=== PATIENT | male | born 2005 | race Two or more races ===

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

== ENCOUNTER 2025-02-17 06:07 | Emergency (ER) | payer MEDICAID, SELFPAY ==
[2025-02-17 06:41] VITALS: BP 152/78; PULSE 108; RESP 20; TEMP 36.8; O2SAT 97; BMI 26.0
[2025-02-17 07:15] LABS: Appearance Urine Cloudy (Clear); Bilirubin Urine 1+ (Negative); Blood Urine 3+ (Negative); Color Urine Red (Yellow); Glucose Urine Negative (Negative); Ketones Urine Trace (Negative); Leukocyte Esterase Urine 3+ (Negative); Nitrite Urine Positive (Negative); Protein Urine 3+ (Negative); Specific Gravity Urine 1.025 (1.000-1.030)
[2025-02-17 07:34] LABS: Bacteria Urine Moderate; RBC Urine >100 (0-2); Squamous Epithelial Cell Urine Few (None-Few); WBC Clumps Urine Few
--- NOTE | 2025-02-17 08:23 | ED.GENADULT ---
HPI - General Adult General Chief complaint: Urogenital Problems, Male Stated complaint: blood when urinating Time Seen by Provider: 02/17/25 08:15 Source: patient Mode of arrival: ambulatory Limitations: no limitations History of Present Illness HPI narrative: 19-year-old male presenting today with dysuria for 3 days. In the last 24 hours he has developed increased urinary frequency. In the last 3 hours he developed blood clots in his urine. He denies suprapubic pain. He denies sexual activity. He denies inserting anything into the penis. He states that he felt achy yesterday and checked his temperature it was 100.7. He denies nausea or vomiting. He denies weakness or lethargy. He denies history of UTIs. He denies penile or scrotal pain. Related Data Previous Rx's ?Medication ?Instructions ?Recorded doxycycline hyclate 100 mg capsule 100 mg PO BID 7 days #14 caps 02/17/25 Allergies Allergy/AdvReac Type Severity Reaction Status Date / Time No Known Drug Allergies Allergy Verified 10/10/23 15:12 Review of Systems Status of ROS: Reports: 10 or more systems reviewed and unremarkable except as noted in History and below [facility] Social History Smoking Status: Never smoker How often do you have a drink containing alcohol: never AUDIT-C Alcohol total score: 0 Non-prescribed substance use: denies use Exam Narrative: Exam Narrative: Well-nourished well-developed patient in no acute distress. Alert and oriented. Answers questions appropriately. Mood and affect are appropriate. Thoughts are goal oriented and rational. No tangential or magical thinking noted. Patient speaks in full sentences without needing to catch his breath. HEENT: Normocephalic atraumatic. Pupils are equally round reactive to light. Extraocular muscles are intact. Conjunctivae are moist without any icterus noted. Moist mucous membranes. Abdomen: Soft and nontender nondistended with normal bowel sounds. No guarding or rebound. No masses or organomegaly appreciated. Extremities: Bilateral lower extremities are without edema. Skin: Well perfused without any obvious rashes. : Defers Const: Vital Signs, click to edit/add: Vital Signs - 24 hr 02/17/25 06:41 02/17/25 09:09 Temperature 98.3 F 99.3 F Pulse Rate [Right Pulse Oximeter] 108 H 100 Respiratory Rate 20 18 Blood Pressure [Ri t Upper Arm] 152/78 H 136/83 Pulse Oximetry 97 100 Oxygen Delivery Me thod Room Air Room Air Course Course ED Course: UA is grossly positive for signs of infection with 3+ blood, 3+ leukocyte esterase, positive nitrites. Chlamydia gonorrhea testing pending. CBC shows elevated white cell count. Chemistries unremarkable. Patient was given IM Rocephin while he was here. Blood cultures were drawn. Vital Signs Vital signs: Initial Vital Signs Temperature 98.3 F 02/17/25 06:41 Temperature Source Temporal Artery Scan 02/17/25 06:41 Pulse Rate 108 H 02/17/25 06:41 Pulse Rhythm Regular 02/17/25 06:41 Respiratory Rate 20 02/17/25 06:41 Blood Pressure 152/78 H 02/17/25 06:41 Blood Pressure Mean 102 02/17/25 06:41 Blood Pressure Position Sitting 02/17/25 06:41 Pulse Oximetry 97 02/17/25 06:41 Oxygen Delivery Method Room Air 02/17/25 06:41 Vital Signs Temperature 98.3 F 02/17/25 06:41 Pulse Rate 108 H 02/17/25 06:41 Respiratory Rate 20 02/17/25 06:41 Blood Pressure 152/78 H 02/17/25 06:41 Pulse Oximetry 97 02/17/25 06:41 Oxygen Delivery Method Room Air 02/17/25 06:41 Temperature 99.3 F 02/17/25 09:09 Pulse Rate 100 02/17/25 09:09 Respiratory Rate 18 02/17/25 09:09 Blood Pressure 136/83 02/17/25 09:09 Pulse Oximetry 100 02/17/25 09:09 Oxygen Delivery Method Room Air 02/17/25 09:09 Medications Administered Medications: Generic Name Dose Route Start Last Admin Trade Name Freq PRN Reason Stop Dose Admin Lidocaine HCl 2.1 ml 02/17/25 08:21 02/17/25 08:45 Lidocaine 1% 5 Ml (Pf) 5 Ml Vial IM 2.1 ml DIRECTED PRN Administration Pain Discontinued Medications Generic Name Dose Route Start Last Admin Trade Name Freq PRN Reason Stop Dose Admin Ceftriaxone Sodium 1 gm 02/17/25 08:21 02/17/25 08:45 Ceftriaxone 1 Gm Vial IM 02/17/25 08:22 1 gm ONCE ONE Administration Ibuprofen 600 mg 02/17/25 09:10 02/17/25 09:16 Ibuprofen 400 Mg Tablet PO 02/17/25 09:11 600 mg ONCE ONE Administration Medical Decision Making MDM Narrative Medical decision making narrative: 19-year-old male with urinary tract infection, leukocytosis. Patient will be discharged home on doxycycline. Recommend follow-up in 24-48 hours. Lab Data Lab results reviewed: Yes I reviewed the patient's lab results Labs: Lab Results 02/17/25 02/17/25 Range/Units 07:06 08:34 WBC 15.48 H (4.50-11.00) K/uL RBC 5.48 (4.30-5.90) m/uL Hgb 13.3 L (13.5-17.5) gm/dL Hct 41.6 (37.0-53.0) % MCV 76 L (80-100) fL MCH 24 L (26-34) pg MCHC 32 (32-36) gm/dL RDW Coeff of Leonora 14.3 (11.5-15.5) % Plt Count 181 (140-440) K/uL Neut % (Auto) 74.2 H (42.0-72.0) % Lymph % (Auto) 9.6 L (20-44) % Robertson % (Auto) 15.8 H (0.0-11.0) % Eos % (Auto) 0.1 (0.0-7.0) % Baso % (Auto) 0.1 (0.0-3.0) % Neut # (Auto) 11.50 H (1.7-7.0) K/uL Lymph # (Auto) 1.50 (0.90-2.90) K/uL Robertson # (Auto) 2.40 H (0.00-0.90) K/UL Eos # (Auto) 0.00 (0.00-0.50) K/uL Baso # (Auto) 0.00 (0.00-0.30) K/uL Abs Immat Gran (auto) 0.00 (0.00-0.30) K/uL Imm/Tot Granulo (auto) 0.2 % Sodium 138 (135-149) mmol/L Potassium 4.4 (3.6-5.1) mmol/L Chloride 102 (96-114) mmol/L Carbon Dioxide 25 (20-32) mmol/L Anion Gap 11 (7-15) mEq/L BUN 15 (5-24) mg/dL Creatinine 0.9 (0.5-1.5) mg/dL Estimated Creat Clear 101.11 Estimated GFR 125 ml/min Glucose 95 (60-115) mg/dL Calcium 9.5 (8.4-10.6) mg/dL Urine Color Red A (Yellow) Urine Appearance Cloudy A (Clear) Urine pH 7.0 (5.0-8.5) Ur Specific [facility] 1.025 (1.000-1.030) Urine Protein 3+ A (Negative) Urine Glucose (UA) Negative (Negative) Urine Ketones Trace A (Negative) Urine Blood 3+ A (Negative) Urine Nitrite Positive A (Negative) Urine Bilirubin 1+ A (Negative) Urine Urobilinogen 1.0 (0.2-1.0) Ur Leukocyte Esterase 3+ A (Negative) Urine RBC >100 A (0-2) Urine WBC 10-25 A (0-5) Urine WBC Clumps Few A (None) Ur Squamous Epith Cells Few (None-Few) Urine Bacteria Moderate A (None) Discharge Plan Discharge Clinical Impression: Urinary tract infection Patient Disposition: Home, Self-Care Condition: Stable Instructions: Urinary Tract Infection in Men (DC) Additional Instructions: Take all antibiotics as prescribed. Take your 1st dose today. You should follow-up with your primary care provider or at the [facility] in 24-48 hours for a recheck. If you start vomiting and cannot keep down your antibiotic, developed weakness or abdominal pain, you should return to the emergency department. Prescriptions: New doxycycline hyclate 100 mg capsule 100 mg PO BID 7 Days Qty: 14 0RF Follow Up/Referrals: Provider,Not a Local [Primary Care Provider] - Stand Alone Forms: [employer] Info Instructions
[2025-02-17] MEDS: cefTRIAXone 1 GM VIAL IM (08:45)
[2025-02-17] MEDS: LIDOCAINE 1% 5 ml (pf) 5 ML VIAL 2.1 ML IM (08:45)
[2025-02-17 09:01] LABS: Basophils Percent Auto 0.1 % (0.0-3.0); Eosinophils Percent Auto 0.1 % (0.0-7.0); Hematocrit 41.6 % (37.0-53.0); Hemoglobin* 13.3 gm/dL (13.5-17.5); Immature Granulocytes Pct Auto 0.2 %; Lymphocytes Percent Auto 9.6 % (20-44); Mean Corpuscular HGB Conc 32 gm/dL (32-36); Mean Corpuscular Hemoglobin 24 pg (26-34); Mean Corpuscular Volume 76 fL (80-100); Monocytes Percent Auto 15.8 % (0.0-11.0); Neutrophils Percent Auto 74.2 % (42.0-72.0); Platelet Count* 181 K/uL (140-440); RDW Coefficient of Variation % 14.3 % (11.5-15.5); Red Blood Count 5.48 m/uL (4.30-5.90); White Blood Count* 15.48 K/uL (4.50-11.00)
[2025-02-17 09:04] LABS: Slide Review Reflex No
[2025-02-17 09:09] VITALS: BP 136/83; PULSE 100; RESP 18; TEMP 37.4; O2SAT 100
[2025-02-17] MEDS: IBUPROFEN 400 MG TABLET 600 MG PO (09:16)
[2025-02-17 09:17] LABS: Chloride* 102 mmol/L (96-114)
[2025-02-17 09:18] LABS: Potassium* 4.4 mmol/L (3.6-5.1); Sodium* 138 mmol/L (135-149)
[2025-02-17 09:20] LABS: Blood Urea Nitrogen* 15 mg/dL (5-24); Creatinine* 0.9 mg/dL (0.5-1.5); Est. Creatinine Clearance* 101.11; Estimated Glomerular Filt Rate 125 ml/min
[2025-02-17 09:21] LABS: Anion Gap 11 mEq/L (7-15); Calcium* 9.5 mg/dL (8.4-10.6); Carbon Dioxide* 25 mmol/L (20-32); Glucose* 95 mg/dL (60-115)
[2025-02-17 10:37] LABS: Chlamydia DNA Amplified* NOT DETECTED (No Detected); GC DNA Amplified* NOT DETECTED (No Detected)
== END 2025-02-17 10:14 | disposition home or self-care (01) ==
PROVIDERS: Emergency Provider Family Medicine
DX: N39.0 Urinary tract infection, site not specified (principal); R31.9 Hematuria, unspecified; R30.0 Dysuria
CPT/HCPCS: 36415; 80048; 81001; 81003; 85025; 87040; 87086; 87491; 87591; 96372; 99284; A9270; J0696

== ENCOUNTER 2025-02-19 16:27 | Outpatient (CLI) | payer MEDICAID, SELFPAY ==
--- NOTE | 2025-02-19 16:20 | CRLHL7_ITS ---
For Patients: As a result of the Century Cures Act, medical imaging exams and procedure reports are released immediately into your electronic medical record. You may view this report before your referring provider. If you have questions, please contact your health care provider. INDICATION: Screening for respiratory tuberculosis TECHNIQUE: PA and lateral images of the chest. COMPARISON: None FINDINGS: Lungs clear. No evidence of chronic or active tuberculosis. No pleural effusion evident. Heart, mediastinum and pulmonary vessels normal. No significant osseous abnormality. IMPRESSION: Negative chest. Dictated by Richard Vieira MD @ 02/21/2025 7:35:27 AM (Electronically Signed)
== END 2025-02-19 16:28 | disposition home or self-care (01) ==
PROVIDERS: Visit Provider Nurse Practitioner
DX: R76.12 Nonspecific reaction to cell mediated immunity measurement of gamma interferon antigen response without active tuberculosis (principal); Z11.1 Encounter for screening for respiratory tuberculosis
CPT/HCPCS: 71046

== ENCOUNTER 2025-03-07 18:15 | Outpatient (CLI) | payer MEDICAID, SELFPAY | END 2025-03-07 18:16 | disposition home or self-care (01) | LOC: NFLDREF 03-10 12:30 | PROVIDERS: Visit Provider Physician Assistant | DX: N39.0 Urinary tract infection, site not specified (principal); R31.9 Hematuria, unspecified; B96.20 Unspecified Escherichia coli [E. coli] as the cause of diseases classified elsewhere | CPT/HCPCS: 87086 ==